=== PATIENT | male | born 1995 | race Caucasian/White ===

== ENCOUNTER 2022-06-12 15:18 | Emergency (ER) | payer BC ==
[2022-06-12 15:23] VITALS: RESP 18; TEMP 98.4
[2022-06-12] MEDS ORDERED: DEXAMETHASONE SOD PHOSPHATE 10 MG/ML 1 ML VIAL IV STA (15:43)
[2022-06-12] MEDS ORDERED: SODIUM CHLORIDE 0.9% 1,000 ML IV ONE (15:43)
[2022-06-12] MEDS ORDERED: AMPICILLIN-SULBACTAM 3 GM in SODIUM CHLORIDE 0.9% 100 ML IVPB STA (15:43)
[2022-06-12] MEDS ORDERED: KETOROLAC 15 MG/ML 1 ML VIAL IVP STA (15:44)
[2022-06-12] MEDS ORDERED: LIDOCAINE 1% INJ 10MG/ML (20 ML MDV) SQ ONE (15:44)
[2022-06-12] MEDS ORDERED: BENZOCAINE SPRAY 1 CAN TOPICAL STA (15:45)
--- NOTE | 2022-06-12 15:57 | ED ---
General Adult HPI - General Chief complaint: ENT Stated complaint: oral absess Time Seen by Provider: 06/12/22 15:26 Source: patient, RN notes reviewed, old records reviewed Mode of arrival: ambulatory Limitations: no limitations - History of Present Illness Initial comments: 27-year-old male presenting with sore throat, diagnosed with peritonsillar abs cess at the primary care office. He has been on Keflex for the past 5 days. He's had difficulty swallowing and fever at home. He has history of recurrent strep pharyngitis. Patient otherwise healthy. - Related Data Previous Rx's Medication Instructions Recorded Amoxic-Pot Clav 875-125Mg 1 tab PO BID 10 Days #20 tab 06/12/22 [Augmentin 875-125] dexAMETHasone [Decadron] 0.75 mg PO DIRECTED 10 Days #24 06/12/22 tab Allergies Allergy/AdvReac Type Severity Reaction Status Date / Time No Known Allergies Allergy Verified 06/12/22 15:22 Review of Systems ROS Statement: Those systems with pertinent positive or pertinent negative responses have been documented in the HPI. ROS Other: All systems not noted in ROS Statement are negative. Past Medical History Past Medical History: No Reported History History of Any Multi-Drug Resistant Organisms: None Reported Past Surgical History: No Surgical Hx Reported Past Psychological History: No Psychological Hx Reported Smoking Status: Vaper Past Alcohol Use History: Occasional Past Drug Use History: None Reported General Exam Limitations: no limitations General appearance: alert, in no apparent distress Head exam: Present: atraumatic, normocephalic Eye exam: Present: normal appearance, PERRL ENT exam: Present: mucous membranes moist, other (Large right peritonsillar abscess, swollen, erythematous) Respiratory exam: Present: normal lung sounds bilaterally. Absent: respiratory distress, wheezes Cardiovascular Exam: Present: regular rate, normal rhythm GI/Abdominal exam: Absent: distended Extremities exam: Present: normal inspection Neurological exam: Present: alert. Absent: motor sensory deficit Psychiatric exam: Present: normal affect, normal mood Skin exam: Present: warm, dry, intact. Absent: cyanosis, diaphoretic Course Vital Signs 06/12/22 15:20 Temperature 98.4 F Pulse Rate 101 H Respiratory 18 Rate Blood Pressure 173/112 O2 Sat by Pulse 99 Oximetry Procedures - Incision & Drainage Consent Obtained: verbal consent Indication: peritonsillar abscess Site: oral Size (cm): 3 Anesthetic Used: lidocaine 1% Amount (mLs): 2 Sterile Field Used?: No Needle Aspiration Performed?: Yes Irrigation Performed?: No I&D Drainage Obtained: Pus Culture Obtained?: No Patient Tolerated Procedure: well Medical Decision Making - Medical Decision Making 27-year-old male presenting with peritonsillar abscess, after initial medications including antibiotics, steroids are given, patient is given a topical anesthetic followed by 2 mL lidocaine and needle aspiration is performed with 20 mL of abby pus obtained. Patient really feels better. Continued on antibiotics steroids and given close follow-up with ENT. Discussed case with Dr. Higuera who will see the patient on an outpatient basis. Disposition Clinical Impression: Peritonsillar abscess Disposition: HOME SELF-CARE Condition: Fair Instructions (If sedation given, give patient instructions): Peritonsillar Abscess (ED) Prescriptions: Amoxic-Pot Clav 875-125Mg [Augmentin 875-125] 1 tab PO BID 10 Days #20 tab dexAMETHasone [Decadron] 0.75 mg PO DIRECTED 10 Days #24 tab Is patient prescribed a controlled substance at d/c from ED?: No Referrals: None,Stated [Primary Care Provider] - 1-2 days Bob Higuera MD [STAFF PHYSICIAN] - 1-2 days Time of Disposition: 16:44
[2022-06-12 17:18] VITALS: BP 124/76; PULSE 75
== END 2022-06-12 17:17 | disposition home or self-care (01) ==
LOC: EC 15:18
DX: J36 Peritonsillar abscess (principal); F12.90 Cannabis use, unspecified, uncomplicated
CPT/HCPCS: 99283; 96365; 96375 ×2; 96361; 42700; J1100; J2001; J0295; J1885; 96374

== ENCOUNTER → 2022-09-11 | Outpatient (CLI) | payer BC ==
--- NOTE | 2022-09-12 11:23 | CA ---
Transthoracic Echo Report Name: Lukas Cordero Age: 27 Gender: M : 1995 Exam Date: 09/11/2022 14:12 Exam Location: [place] [facility] Ht (in): 71 Wt (lb): 215 Ordering Physician: Wilfrid Perez DO Attending/Referring Phys: Le Grossman [facility] [employer] Belen Zuniga RDCS Procedure CPT: Indications: R07.89 chest pain Cardiac Hx: Technical Quality: Fair Contrast 1: Total Dose (mL): Contrast 2: Total Dose (mL): MEASUREMENTS (Male / Female) Normal Values 2D ECHO LV Diastolic Diameter PLAX 5.1 cm 4.2 - 5.9 / 3.9 - 5.3 cm LV Systolic Diameter PLAX 3.7 cm IVS Diastolic Thickness 0.9 cm 0.6 - 1.0 / 0.6 - 0.9 cm LVPW Diastolic Thickness 1.0 cm 0.6 - 1.0 / 0.6 - 0.9 cm LV Relative Wall Thickness 0.4 LA Volume 50.0 cm??? 18 - 58 / 22 - 52 cm??? M-MODE Aortic Root Diameter MM 2.5 cm LA Systolic Diameter MM 3.4 cm LA Ao Ratio MM 1.4 AV Cusp Separation MM 2.2 cm DOPPLER AV Peak Velocity 182.1 cm/s AV Peak Gradient 13.3 mmHg AV Mean Velocity 117.7 cm/s AV Mean Gradient 6.4 mmHg AV Velocity Time Integral 32.3 cm AI Peak Velocity 340.7 cm/s AI Peak Gradient 46.4 mmHg AI Pressure Half Time 416.5 ms LVOT Peak Velocity 104.8 cm/s LVOT Peak Gradient 4.4 mmHg MV Area PHT 4.2 cm??? Mitral E Point Velocity 90.5 cm/s Mitral A Point Velocity 77.8 cm/s Mitral E to A Ratio 1.2 MV Deceleration Time 182.1 ms MV E' Velocity 12.3 cm/s Mitral E to MV E' Ratio 7.4 TR Peak Velocity 231.2 cm/s TR Peak Gradient 21.4 mmHg Right Ventricular Systolic Press 26.4 mmHg FINDINGS Left Ventricle Normal Left ventricular size, wall thickness, systolic function with no obvious regional wall motion abnormalities. Normal Left ventricular diastolic filling pattern. Left ventricular ejection fraction is estimated at 55-60 %. Right Ventricle Normal right ventricular size and function. Right ventricular systolic pressure within normal limits. Right Atrium Normal right atrial size. Left Atrium Normal left atrial size. Mitral Valve No mitral stenosis, regurgitation or prolapse. No mitral stenosis, regurgitation or prolapse. Aortic Valve No aortic stenosis. Mild aortic regurgitation. Can not exclude aortic valve. Tricuspid Valve Structurally normal tricuspid valve. Mild tricuspid regurgitation. Pulmonic Valve Trace pulmonic regurgitation. Pericardium No pericardial effusion. Aorta Normal size aortic root and proximal ascending aorta. CONCLUSIONS Normal LV function Previewed by: Dr. Dell Christie MD (Electronically Signed) Final Date: 12 September 2022 11:22
== END | disposition home or self-care (01) ==
LOC: RADECHMAIN 14:03
PROVIDERS: ATTEND Family Medicine
DX: R07.89 Other chest pain (principal)
CPT/HCPCS: 93306